=== PATIENT | male | born 1950 | race African-American/Black ===

== ENCOUNTER 2019-05-08 16:44 | Emergency (ER) | payer MEDICARE, BC ==
[2019-05-08 17:06] VITALS: BP 150/72
--- NOTE | 2019-05-08 17:53 | ER Document Report ---
ED Medical Screen (RME) - General Chief Complaint: Medication Refill Stated Complaint: MEDICATION REFILL Time Seen by Provider: 05/08/19 17:46 Primary Care Provider: TIKI ESCOBAR MD [COMMUNITY BASED STAFF] - Follow up as needed Mode of Arrival: Ambulatory Information source: Patient Notes: 68-year-old male presented to ED for refill of his Janumet mg twice bakari y. He did have a empty bottle with him. He states he does not have any signs or symptoms of anything he just needed his medication because he could not get into see a doctor due to the fact that his weekend he just moved from [place] and has not established with her primary care as yet. He just moved 3 or 4 weeks ago. We will write him a prescription for 1 months worth of Janumet and he stated he would follow-up with a doctor before needing another prescription. TRAVEL OUTSIDE OF THE [place] IN LAST 30 DAYS: No - HPI Onset: This morning Onset/Duration: Gradual Quality of pain: No pain Severity: None Pain Level: Denies Associated Symptoms: Other - Needs refill on medication Exacerbated by: Denies Relieved by: Denies Similar symptoms previously: Yes Recently seen / treated by doctor: No - Related Data Smoking: Non-smoker Frequency of alcohol use: None Drug Abuse: None Allergies/Adverse Reactions: No Known Allergies Allergy (Verified 01/27/19 08:37) Past Medical History - General Information source: Patient - Social History Cigarette use (# per day): No Frequency of alcohol use: None Drug Abuse: None Lives with: Family Family history: Reviewed & Not Pertinent - Past Medical History Cardiac Medical History: Reports: Hx Hypercholesterolemia, Hx Hypertension Pulmonary Medical History: Reports: None EENT Medical History: Reports: None Neurological Medical History: Reports: None Endocrine Medical History: Reports: Hx Diabetes Mellitus Type 2 Renal/ Medical History: Reports: Other - State cancer Malignancy Medical History: Reports Hx Prostate Cancer GI Medical History: Reports: None Musculoskeltal Medical History: Reports None Skin Medical History: Reports None Psychiatric Medical History: Reports: None Traumatic Medical History: Reports: None Infectious Medical History: Reports: None Past Surgical History: Reports: Other - Removal of prostate - Immunizations Immunizations up to date: Yes Hx Diphtheria, Pertussis, Tetanus Vaccination: Yes Review of Systems - Review of Systems Constitutional: No symptoms reported EENT: No symptoms reported Cardiovascular: No symptoms reported Respiratory: No symptoms reported Gastrointestinal: No symptoms reported Genitourinary: No symptoms reported Male Genitourinary: No symptoms reported Musculoskeletal: No symptoms reported Skin: No symptoms reported Hematologic/Lymphatic: No symptoms reported Neurological/Psychological: No symptoms reported -: Yes All other systems reviewed and negative Physical Exam - Vital signs Vitals: Temp Pulse Resp BP Pulse Ox 98.6 F 88 18 150/72 H 99 05/08/19 17:06 05/08/19 17:06 05/08/19 17:06 05/08/19 17:06 05/08/19 17:06 Interpretation: Normal - General General appearance: Appears well, Alert - HEENT Head: Normocephalic, Atraumatic Eyes: Normal Pupils: PERRL - Respiratory Respiratory status: No respiratory distress Chest status: Nontender Breath sounds: Normal Chest palpation: Normal - Cardiovascular Rhythm: Regular Heart sounds: Normal auscultation Murmur: No - Abdominal Inspection: Normal Distension: No distension Bowel sounds: Normal Tenderness: Nontender Organomegaly: No organomegaly - Back Back: Normal, Nontender - Extremities General upper extremity: Normal inspection, Nontender, Normal color, Normal ROM, Normal temperature General lower extremity: Normal inspection, Nontender, Normal color, Normal ROM, Normal temperature, Normal weight bearing. No: Conchis's sign - Neurological Neuro grossly intact: Yes Cognition: Normal Orientation: AAOx4 Jenifer Coma Scale Eye Opening: Spontaneous Jenifer Coma Scale Verbal: Oriented Enfield Coma Scale Motor: Obeys Commands Enfield Coma Scale Total: 15 Speech: Normal Motor strength normal: LUE, RUE, LLE, RLE Sensory: Normal - Psychological Associated symptoms: Normal affect, Normal mood - Skin Skin Temperature: Warm Skin Moisture: Dry Skin Color: Normal Course - Re-evaluation Re-evalutation: 05/08/19 22:30 Patient moved from [place] to [place] 3 or 4 weeks ago has not set up with a primary care doctor plans to set up with Dr. Escobar his mother's primary care doctor. He states he has all of his medications except for the Janumet mg that he takes once twice a day. He is out he took his last one yesterday. He states he needs a prescription to last until he can get an appointment with Dr. Escobar. - Vital Signs Vital signs: Temp Pulse Resp BP Pulse Ox 98.6 F 88 18 150/72 H 99 05/08/19 17:06 05/08/19 17:06 05/08/19 17:06 05/08/19 17:06 05/08/19 17:06 Doctor's Discharge - Discharge Clinical Impression: Medication refill Condition: Stable Disposition: HOME, SELF-CARE Additional Instructions: You were seen today for refill of your Janumet mg XR 1 twice daily Taking this for diabetes. States to have all of the other medications that she required for your high blood pressure cholesterol and any other medications you take. Stated you will follow-up with Dr. Nelson before you need any other prescriptions. FOLLOW-UP CARE: If you have been referred to a physician for follow-up care, call the physicians office for an appointment as you were instructed or within the next two days. If you experience worsening or a significant change in your symptoms, notify the physician immediately or return to the Emergency Department at any time for re-evaluation. Prescriptions: Sitagliptin Phos/Metformin HCl [Janumet Xr 50-1,000 mg Tablet] 1 each PO BID #60 [id number].24hr Forms: Elevated Blood Pressure Referrals: TIKI ESCOBAR MD [COMMUNITY BASED STAFF] - Follow up as needed
== END 2019-05-08 17:56 | disposition home or self-care (01) ==
LOC: ER 16:44
DX: Z76.0 Encounter for issue of repeat prescription (principal); Z79.899 Other long term (current) drug therapy; I10 Essential (primary) hypertension; E11.9 Type 2 diabetes mellitus without complications
CPT/HCPCS: 99281

== ENCOUNTER 2020-01-20 18:00 | Emergency (ER) | payer MEDICARE, BC ==
[2020-01-20 18:09] VITALS: BP 149/80
--- NOTE | 2020-01-20 19:07 | ER Document Report ---
HPI - HPI Time Seen by Provider: 01/20/20 19:00 Past Medical History - Social History Family History: None - Past Medical History Cardiac Medical History: Reports: Hx Hypercholesterolemia, Hx Hypertension Endocrine Medical History: Reports: Hx Diabetes Mellitus Type 2 Renal/ Medical History: Denies: Hx Peritoneal Dialysis Malignancy Medical History: Reports Hx Prostate Cancer Past Surgical History: Reports: Other - Removal of prostate - Immunizations Immunizations up to date: Yes Hx Diphtheria, Pertussis, Tetanus Vaccination: Yes Vertical Provider Document - INFECTION CONTROL TRAVEL OUTSIDE OF THE [place] IN LAST 30 DAYS: No Course - Vital Signs Vital signs: Temp Pulse Resp BP Pulse Ox 98.3 F 92 16 149/80 H 100 01/20/20 18:08 01/20/20 18:08 01/20/20 18:08 01/20/20 18:08 01/20/20 18:08
== END 2020-01-20 19:05 | disposition left against medical advice (07) ==
LOC: ER 18:00
DX: Z53.21 Procedure and treatment not carried out due to patient leaving prior to being seen by health care provider (principal)

== ENCOUNTER → 2020-01-26 | Outpatient (CLI) | payer MEDICARE, BC ==
[2020-01-26 11:48] LABS: ABSOLUTE LYMPHOCYTES (AUTO) 0.6 10^3/uL (0.5-4.7); ABSOLUTE MONOCYTES (AUTO) 0.3 10^3/uL (0.1-1.4); ABSOLUTE NEUT (AUTO) 2.2 10^3/uL (1.7-8.2); BASOPHILS % (AUTO) 0.4 % (0-2); HEMATOCRIT 31.6 % (37.9-51.0); HEMOGLOBIN 10.5 g/dL (13.5-17.0); LYMPHOCYTES % (AUTO) 18.1 % (13-45); MEAN CORPUSCULAR HEMOGLOBIN 26.7 pg (27.0-33.4); MEAN CORPUSCULAR HGB CONC 33.3 g/dL (32.0-36.0); MEAN CORPUSCULAR VOLUME 80 fl (80-97); MONOCYTES % (AUTO) 8.3 % (3-13); PLATELET COUNT 178 10^3/uL (150-450); RED BLOOD COUNT 3.95 10^6/uL (4.35-5.55); RED CELL DISTRIBUTION WIDTH 15.3 % (11.5-14.0); SEGMENTED NEUTROPHILS % (AUTO) 72.2 % (42-78); TOTAL CELLS COUNTED % (AUTO) 100 %; WHITE BLOOD COUNT 3.1 10^3/uL (4.0-10.5)
[2020-01-26 12:09] LABS: ALBUMIN 4.4 g/dL (3.5-5.0); ALKALINE PHOSPHATASE 68 U/L (38-126); ANION GAP 7 (5-19); ASPARTATE AMINO TRANSFERASE 19 U/L (17-59); BILIRUBIN,TOTAL 0.3 mg/dL (0.2-1.3); BLOOD UREA NITROGEN 18 mg/dL (7-20); CALCIUM 9.6 mg/dL (8.4-10.2); CARBON DIOXIDE 29 mmol/L (22-30); CHLORIDE 99 mmol/L (98-107); CHOLESTEROL 141.46 mg/dL (0-200); GLUCOSE 208 mg/dL (75-110); POTASSIUM 4.1 mmol/L (3.6-5.0); TOTAL PROTEIN 8.6 g/dL (6.3-8.2); TRIGLYCERIDES 195 mg/dL (<150)
[2020-01-26 12:20] LABS: DIRECT LDL 61 mg/dL (<100)
[2020-01-27 17:36] LABS: CREATININE URINE 132.7 mg/dL (Not Estab.)
== END ==
LOC: OD 10:49
PROVIDERS: ATTEND Internal Medicine
DX: E11.21 Type 2 diabetes mellitus with diabetic nephropathy (principal); I10 Essential (primary) hypertension; E78.5 Hyperlipidemia, unspecified; R53.83 Other fatigue; C61 Malignant neoplasm of prostate
CPT/HCPCS: 36415; 80053; 80061; 82043; 82570; 83036; 84153; 84443; 85025